=== PATIENT | female | born 1970 | race Caucasian/White ===

== ENCOUNTER → 2017-03-03 | Outpatient (CLI) | payer BC ==
[~2017-03-03] MED LIST: CELEXA20 MG PO; FLEXERIL10 M1 PO; FLEXERIL10 MG PO; FLONASE 0.05% N16 G1; LEVAQUIN PO; NAPROXEN PO; NORCO 5/325 TAB1 TAB PO; TOPROL XL PO; TYLENOL #3 PO; VOLTAREN75 MG PO; ZANTAC PO
--- NOTE | ~2017-03-03 | CT3 ---
[facility] A Service of [facility] & [facility] RADIOLOGY TEXT RESULTS PATIENT: HARI LANG LOCATION: [facility] : 70 UNIT #: [id number] AGE: [address]: Denton Underwood MD SEX: F ORDER DR: [id number] [facility] [address] [place], [place] [address] [id number] O MR#: [id number] Acc #: [id number] NAME: HARI LANG : 1970 SEX: F STUDY DATE/TIME: 03/03/2017 15:41 UNIT: [facility] ROOM: STUDY DESCRIPTION: CT Abd and Pelv WWo Cont Attending Physician: Denton Underwood M.D. Referring Physician: Denton Underwood M.D. Ordering Physician: Denton Underwood M.D. Primary Care Physician: Concha Byrd M.D. MEDICAL IMAGING REPORT This report is preliminary unless electronic signature is present EXAM CT abdomen and pelvis without and with contrast (hematuria protocol) 03/03/2017 HISTORY Microhematuria since the fall. History of left nephrectomy (donated). History of kidney stones. COMPARISON CT abdomen and pelvis without contrast 05/03/2015. PROCEDURE Precontrast imaging through the abdomen and pelvis. Dynamic postcontrast imaging through the abdomen in the corticomedullary and nephrographic phases. 5-minute delayed excretory phase imaging through the abdomen and pelvis. Sagittal and coronal reformatted images were obtained. Enteric contrast was not administered. This CT examination was performed with one or more of the following radiation dose reduction techniques: automatic exposure control, adjustment of mA and/or kV according to patient size, and iterative reconstruction. FINDINGS ABDOMEN: Left nephrectomy. On noncontrast imaging, no right renal or ureteral stone is identified. The right kidney demonstrates normal enhancement without cystic or solid lesion. On delayed excretory phase imaging, no suspicious filling defect is seen within the right renal collecting system or ureter. Urinary bladder is incompletely distended but appears unremarkable, as well. The lung bases are clear. Cholecystectomy. Incidental note of 3 low-density lesions within the right hepatic lobe measuring 4 mm, 8 mm and 6 mm, respectively, compatible with the appearance of cysts. The [facility] A Service of [facility] RADIOLOGY TEXT RESULTS PATIENT: HARI LANG LOCATION: [facility] : 70 UNIT #: [id number] AGE: [address]: Denton Underwood MD SEX: F ORDER DR: gallbladder is surgically absent. The spleen, pancreas and adrenal glands are normal. Unopacified bowel appears nonthickened and noninflamed. The appendix appears normal. No adenopathy or free fluid. PELVIS: Uterus is slightly retroverted. The urinary bladder appears unremarkable. Small bilateral pelvic phleboliths have a similar appearance to the previous exam. No free fluid. No adenopathy. No acute or suspicious osseous abnormality. IMPRESSION 1. Normal precontrast and postcontrast appearance of the right kidney, ureter and urinary bladder. No CT explanation of the patient's hematuria. 2. Left nephrectomy. 3. Subcentimeter hepatic cysts. 4. Cholecystectomy. Dictated by... Erika Solitario M.D. THIS IS AN ELECTRONICALLY VERIFIED REPORT Erika Solitario M.D. at 03/04/2017 11:45 AM AARON/vinicio TD: 03/04/2017 08:47 JOB #: [id number] MEDICAL IMAGING REPORT Page 1 of 1 COPY
[2017-03-03 16:46] LABS: POC - CREATININE 1.09 mg/dL (0.44-1.03)
== END | disposition home or self-care (01) ==
LOC: CCAT 15:09
PROVIDERS: Urology
DX: R31.29 Other microscopic hematuria (principal); Q61.02 Congenital multiple renal cysts; Z90.5 Acquired absence of kidney; Z90.49 Acquired absence of other specified parts of digestive tract
CPT/HCPCS: 74178; 82565; Q9967